=== PATIENT | female | born 1995 | race African-American/Black ===

== ENCOUNTER 2021-04-12 16:36 | Outpatient (CLI) | payer BC ==
[2021-04-12 18:20] LABS: BHCG - Serum Negative (NEGATIVE); Pregs Control Background? CLEAR/WHITE (CLR/WHITE); Pregs Control Bar Appear? YES (CONTROL BAR)
[2021-04-13 08:53] LABS: SARS-CoV-2 PCR by NAA Not Detected (NotDetected)
== END 2021-04-12 16:37 | disposition home or self-care (01) ==
LOC: LABBT 16:36
PROVIDERS: ATTEND Student in an Organized Health Care Education/Training Program
DX: Z01.812 Encounter for preprocedural laboratory examination (principal); J03.90 Acute tonsillitis, unspecified; R13.10 Dysphagia, unspecified; Z20.822 Contact with and (suspected) exposure to COVID-19
CPT/HCPCS: 84703; 85014; U0003; U0005

== ENCOUNTER 2021-04-17 06:00 | Day surgery (SDC) | payer BC ==
[2021-04-13 10:30] VITALS: BMI 45.8
[2021-04-17] MEDS ORDERED: Midazolam HCl 2 mg/2 ml Vial ONE ×2 (06:59→07:09)
[2021-04-17] MEDS ORDERED: Fentanyl 100 MCG/2 ML VIAL ONE ×2 (06:59)
[2021-04-17] MEDS ORDERED: SUGAMMADEX SODIUM 200 MG/2 ML VIAL ONE (07:06)
[2021-04-17] MEDS ORDERED: Esmolol 100 MG/10 ML VIAL ONE (07:44)
[2021-04-17] MEDS ORDERED: Ondansetron PF 4 MG/2 ML Vial ONE (07:44)
[2021-04-17] MEDS ORDERED: Lidocaine 1% PF 5 ML VIAL ONE (07:44)
[2021-04-17] MEDS ORDERED: Dexamethasone 20 MG/5 ML VIAL ONE (07:44)
[2021-04-17] MEDS ORDERED: PROPOFOL 200 MG/20 ML VIAL ONE (07:44)
[2021-04-17] MEDS ORDERED: Rocuronium Bromide 10 MG/ML (10ML VIAL) ONE (07:44)
[2021-04-17] MEDS ORDERED: Glycopyrrolate 0.2 MG/ML 5 ML SYRINGE ONE (07:44)
[2021-04-17] MEDS ORDERED: Meperidine HCl/PF 25 MG/ML VIAL ONE (08:28)
[2021-04-17] MEDS ORDERED: Hydrocodone-Acetamin 15 ML UDCUP ONE (09:48)
== END 2021-04-17 10:49 | disposition home or self-care (01) ==
LOC: SDC 06:00
PROVIDERS: ATTEND Student in an Organized Health Care Education/Training Program
PROC: 0CTPXZZ Resection of Tonsils, External Approach (ICD-10-PCS; principal; 2021-04-17)
DX: J35.01 Chronic tonsillitis (principal); J02.9 Acute pharyngitis, unspecified; I10 Essential (primary) hypertension; E66.01 Morbid (severe) obesity due to excess calories; Z68.42 Body mass index [BMI] 45.0-49.9, adult; Z86.16 Personal history of COVID-19; Z79.899 Other long term (current) drug therapy
CPT/HCPCS: 88304; J1100; J2175; J2250; J2405; J2704; J3010